=== PATIENT | female | born 1990 | race African-American/Black ===

== ENCOUNTER 2020-08-01 09:49 | Outpatient (CLI) | payer OTHER ==
[2020-08-01 10:45] LABS: APPEARANCE,URINE SLIGHTLY-CLOUDY; BILIRUBIN,URINE NEGATIVE (NEGATIVE); COLOR,URINE YELLOW; GLUCOSE, URINE NEGATIVE (NEGATIVE); KETONES,URINE NEGATIVE (NEGATIVE); LEUKOCYTE ESTERASE,URINE NEGATIVE (NEGATIVE); NITRITE,URINE NEGATIVE (NEGATIVE); PROTEIN,URINE NEGATIVE (NEGATIVE); URINE SPECIFIC GRAVITY 1.008; UROBILINOGEN,URINE NEGATIVE mg/dL (<2.0)
[2020-08-01 10:46] LABS: HEMATOCRIT 33.7 % (36.0-47.0); HEMOGLOBIN 11.2 g/dL (12.0-15.5); MEAN CORPUSCULAR HEMOGLOBIN 29.3 pg (27.0-33.4); MEAN CORPUSCULAR HGB CONC 33.3 g/dL (32.0-36.0); MEAN CORPUSCULAR VOLUME 88 fl (80-97); PLATELET COUNT 360 10^3/uL (150-450); RED BLOOD COUNT 3.83 10^6/uL (3.72-5.28); RED CELL DISTRIBUTION WIDTH 19.5 % (11.5-14.0); WHITE BLOOD COUNT 10.4 10^3/uL (4.0-10.5)
[2020-08-01 11:01] LABS: URINE AMPHETAMINES SCREEN NEGATIVE; URINE BARBITURATES SCREEN NEGATIVE; URINE BENZODIAZEPINES SCREEN NEGATIVE; URINE COCAINE SCREEN NEGATIVE; URINE MARIJUANA (THC) SCREEN NEGATIVE; URINE METHADONE SCREEN NEGATIVE; URINE PHENCYCLIDINE SCREEN NEGATIVE
[2020-08-01 11:07] LABS: ALBUMIN 3.6 g/dL (3.5-5.0); ALKALINE PHOSPHATASE 222 U/L (38-126); ANION GAP 6 (5-19); ASPARTATE AMINO TRANSFERASE 21 U/L (14-36); BILIRUBIN,DIRECT 0.3 mg/dL (0.0-0.4); BILIRUBIN,TOTAL 0.5 mg/dL (0.2-1.3); BLOOD UREA NITROGEN 4 mg/dL (7-20); CALCIUM 9.7 mg/dL (8.4-10.2); CARBON DIOXIDE 24 mmol/L (22-30); CHLORIDE 106 mmol/L (98-107); GLUCOSE 74 mg/dL (75-110); TOTAL PROTEIN 6.5 g/dL (6.3-8.2); URIC ACID 3.8 mg/dL (2.5-6.2)
[2020-08-01 11:10] LABS: UR PRO/CREAT RATIO RESULT 0.7 mg/mg (0.0-0.2); URINE CREATININE 43.2 mg/dL (16-327); URINE PROTEIN 31.5 mg/dL (<12)
--- NOTE | 2020-08-01 11:52 | Non Stress Test Report ---
Non Stress Test Datetime Report Generated by CPN: 08/01/2020 11:52 DEMOGRAPHIC Test Number: 1 EGA NST: 38.6 INDICATION Indication for Study (NST) Other: PIH work up VITAL SIGNS Temperature - NST: 98.1 Pulse - NST: 95 RESP - NST: 15 NBPSYS NST: 120 NBPDIA NST: 75 MONITORING Monitor Explained: Monitor Explained; Test Explained; Patient Verbalized Understanding Time on Monitor: 08/01/2020 09:58 Time off Monitor: 08/01/2020 11:32 NST Duration: 94 NST INTERVENTIONS NST Interventions: PO Hydration Physician Notified NST: K. Stevenson CNM BABY A: [id number] BABY A Movement : Present Contraction Frequency : none FHR Baseline : 135 Accelerations : 15X15 Decelerations : None Variability : Moderate 6-25bpm NST Review: Meets Criteria for Reactive NST NST Review and Verified By : mily RN NST Results: Reactive NST REPORT Report Trigger: Send Report
== END 2020-08-01 12:07 | disposition home or self-care (01) ==
LOC: LC 09:49
PROVIDERS: ATTEND Obstetrics & Gynecology Gynecology
DX: O14.93 Unspecified pre-eclampsia, third trimester (principal); Z3A.38 38 weeks gestation of pregnancy
CPT/HCPCS: 36415; 59025; 80053; 80307; 81005; 82570; 83615; 84112; 84156; 84550; 85027

== ENCOUNTER 2020-08-03 08:55 | Inpatient (IN) | payer OTHER ==
[2020-08-03 09:57] LABS: ABSOLUTE EOSINOPHILS # (AUTO) 0.1 10^3/uL (0.0-0.6); ABSOLUTE LYMPHOCYTES (AUTO) 1.6 10^3/uL (0.5-4.7); ABSOLUTE MONOCYTES (AUTO) 0.8 10^3/uL (0.1-1.4); ABSOLUTE NEUT (AUTO) 6.9 10^3/uL (1.7-8.2); BASOPHILS % (AUTO) 0.4 % (0-2); EOSINOPHILS % (AUTO) 1.5 % (0-6); HEMOGLOBIN 11.3 g/dL (12.0-15.5); LYMPHOCYTES % (AUTO) 16.9 % (13-45); MEAN CORPUSCULAR HEMOGLOBIN 29.7 pg (27.0-33.4); MEAN CORPUSCULAR HGB CONC 34.3 g/dL (32.0-36.0); MEAN CORPUSCULAR VOLUME 87 fl (80-97); MONOCYTES % (AUTO) 8.9 % (3-13); PLATELET COUNT 362 10^3/uL (150-450); RED BLOOD COUNT 3.81 10^6/uL (3.72-5.28); RED CELL DISTRIBUTION WIDTH 18.7 % (11.5-14.0); SEGMENTED NEUTROPHILS % (AUTO) 72.3 % (42-78); TOTAL CELLS COUNTED % (AUTO) 100 %; WHITE BLOOD COUNT 9.5 10^3/uL (4.0-10.5)
[2020-08-03 09:58] LABS: 24 HOUR URINE PROTEIN RESULT 805 mg/day (42-225); URINE PROTEIN 27.2 mg/dL (<12)
[2020-08-03 10:07] LABS: ALBUMIN 3.5 g/dL (3.5-5.0); ALKALINE PHOSPHATASE 229 U/L (38-126); ANION GAP 6 (5-19); ASPARTATE AMINO TRANSFERASE 21 U/L (14-36); BILIRUBIN,DIRECT 0.3 mg/dL (0.0-0.4); BILIRUBIN,TOTAL 0.5 mg/dL (0.2-1.3); BLOOD UREA NITROGEN 4 mg/dL (7-20); CALCIUM 9.7 mg/dL (8.4-10.2); CARBON DIOXIDE 22 mmol/L (22-30); CHLORIDE 107 mmol/L (98-107); GLUCOSE 95 mg/dL (75-110); POTASSIUM 3.8 mmol/L (3.6-5.0); TOTAL PROTEIN 6.4 g/dL (6.3-8.2); URIC ACID 3.6 mg/dL (2.5-6.2)
[2020-08-03] MEDS ORDERED: OXYTOCIN/0.9 % SODIUM CHLORIDE 30 UNIT/500 ML RTUINJ IV PRN (10:38)
[2020-08-03] MEDS ORDERED: RINGERS SOLUTION,LACTATED 1,000 ML IV ONE (10:38)
[2020-08-03] MEDS ORDERED: RINGERS SOLUTION,LACTATED 1,000 ML IV PRN (10:38)
--- NOTE | 2020-08-03 14:31 | Admission Physical ---
Datetime Report Generated by CPN: 08/03/2020 14:30 CURRENT ADMISSION Chief Complaint: Signs/Symptoms Gestational HTN Chief Complaint Other: Patient presented to drop of 24 hour urine protein/creatinine. Resulted at 805. Asymptomatic . Preeclampsia by B/p and 24 hr urine of 805. No severe features. Indication for Induction: PreEclampsia Indication for Induction- Other: Mild pre E at term Admit Impression : Term, Intrauterine ; Intact Membranes Admit Plan: Admit to Unit; Initiate Labor Induction Protocol ALLERGIES Medication Allergies: No Medication Allergies: No Known Allergies (08/03/2020) Latex: No Latex Allergies Food Allergies: n/a Environmental Allergies: n/a OBSTETRICAL HISTORY EDC: 08/09/2020 00:00 : 2 Para: 1 Term: 1 : 0 SAB: 0 IAB: 0 Ectopic: 0 Livin Cesareans: 0 VBACs: 0 Multiple Births: 0 Gestational Diabetes: No Rh Sensitization: No Incompetent Cervix: No MONTEZ: No Infertility: No ART Treatment: No Uterine Anomaly: No IUGR: No Hx Previous C/S: No Macrosomia: No Hx Loss/Stillborn: No PIH: No Hx : No Placenta Previa/Abruption: No Depression/PP Depression: No PTL/PROM: No Post Hemorrhage: No Current Procedures: Ultrasound Obstetrical History Comments: G1- - IOL 10/04/2013 G2- current SEE RECORDS Alcohol: No Marijuana : No Cocaine: No Other Illicit Drugs: No Cigarettes: Former Smoker. [id number] MEDICAL HISTORY Diabetes: No Blood Transfusion: No Pulmonary Disease (Asthma, TB): No Breast Disease: No Hypertension: No Oncology Social Work Surgery: No Heart Disease: No Hosp/Surgery: Yes Autoimmune Disorder: No Anesthetic Complications: No Kidney Disease: No Abnormal Pap Smear: No Neuro/Epilepsy: No Psychiatric Disorders: No Other Medical Diseases: No Hepatitis/Liver Disease: No Significant Family History: No Varicosities/Phlebitis: No Trauma/Violence : No Thyroid Dysfunction: No Medical History Comments: childbirth INFECTIOUS HISTORY Gonorrhea: No Genital Herpes: No Chlamydia: No Tuberculosis: No Syphilis: No Hepatitis: No HIV/AIDS Exposure: No Rash or Viral Illness: No HPV: No PHYSICAL EXAM General: Normal HEENT: Normal Neurologic: Normal Thyroid: Normal Heart: Normal Lungs: Normal Breast: Normal Back: Normal Abdomen: Normal Genitourinary Exam: Normal Extremities: Normal DTRs: Normal Pelvic Type: Adequate Vital Signs: Reviewed; Within Normal Limits VAGINAL EXAM Dilatation: 2 Effacement: 75 Station: -1 Contraction Comments: Irregular FETUS A EGA: 39.1 Monitoring: External US FHR- Baseline: 125 Variability: Moderate 6-25bpm Accelerations: 15X15 Decelerations: None FHR Category: Category I Presentation: Vertex Admit Comment: at 39.1 wks EGA iwth Mild preE at term -Admit to LDR -VS Q 1 hr -CEFM and toco -Labs: 3.6/158/21/12/0.40/362 with 24 hr urine 805 -Will not give mag unless severe features _GBS negative _Plan for Pit /arom _Hx one prior , anticipate PLANS FOR LABOR AND DELIVERY Labor and Delivery: None Pain Management: Natural; Medications; Epidural Feeding Preference: Breast Benefit of Breast Feed Discussed: Yes Circumcision: Yes INFORMED CONSENT Informed Consent Obtained: Vaginal Delivery; Section Delivery; Induction of Labor; Vacuum/Forceps Assist; Risks, Benefits and Alternatives Discussed Signature: with User ID: [email or web address] : with User ID: [email or web address]
[2020-08-03] MEDS ORDERED: OXYTOCIN/0.9 % SODIUM CHLORIDE 0 UNIT/0 ML RTUINJ ONE (14:44)
[2020-08-03] MEDS ORDERED: OXYTOCIN 10 UNIT/ML VIAL ONE (22:28)
[2020-08-03] MEDS ORDERED: OXYTOCIN/0.9 % SODIUM CHLORIDE 30 UNIT/500 ML RTUINJ ONE (22:29)
[2020-08-03] MEDS ORDERED: LIDOCAINE 1% INJ-PF (10 MG/ML) 30 ML SDV ONE (22:29)
[2020-08-03] MEDS ORDERED: MISOPROSTOL 0.2 MG TABLET ONE (22:29)
[2020-08-04] MEDS ORDERED: FENTANYL/BUPIVACAINE/NS/PF 300 MCG/150 ML RTUINJ EPI ONE (00:02)
[2020-08-04] MEDS ORDERED: ROPIVACAINE HCL 0.2% INJ/PF (2 MG/ML) 20 ML SDV ONE (00:02)
[2020-08-04] MEDS ORDERED: EPHEDRINE SULFATE INJ 50 MG/1 ML AMPULE ONE (00:02)
[2020-08-04] MEDS ORDERED: OXYTOCIN/0.9 % SODIUM CHLORIDE 0 UNIT/0 ML RTUINJ ONE (02:58)
[2020-08-04] MEDS ORDERED: DEXTROSE 5%-WATER 250 ML IV PRN (03:54)
[2020-08-04] MEDS ORDERED: DIPHENHYDRAMINE HCL 25 MG CAPSULE PO ONE (05:44)
[2020-08-04] MEDS ORDERED: DIPHENHYDRAMINE HCL 25 MG CAPSULE ONE (05:48)
[2020-08-04] MEDS ORDERED: PROMETHAZINE HCL INJ 25 MG/1 ML VIAL IV PRN ×2 (08:23→10:24)
[2020-08-04] MEDS ORDERED: SIMETHICONE 80 MG TAB.CHEW PO PRN (08:23)
[2020-08-04] MEDS ORDERED: OXYCODONE-ACETAMINOPHEN 5-325 MG TABLET PO PRN ×2 (08:23)
[2020-08-04] MEDS ORDERED: ACETAMINOPHEN 325 MG TABLET PO PRN ×2 (08:23→10:24)
[2020-08-04] MEDS ORDERED: RINGERS SOLUTION,LACTATED 1,000 ML IV PRN (08:23)
[2020-08-04] MEDS ORDERED: DIPH/PERTUSS(ACELL)/TETANUS VAC/PF 0.5 ML SYR (>=10YO) IM PRN ×2 (08:23→10:24)
[2020-08-04] MEDS ORDERED: MEASLES,MUMPS&RUBELLA VACC/PF 0.5 ML VIAL SUBCUT PRN ×2 (08:23→10:24)
[2020-08-04] MEDS ORDERED: HYDROMORPHONE HCL INJ/PF 2 MG/ML AMPULE IV PRN (08:23)
[2020-08-04] MEDS ORDERED: OXYTOCIN/0.9 % SODIUM CHLORIDE 30 UNIT/500 ML RTUINJ IV PRN ×2 (08:23→10:24)
--- NOTE | 2020-08-04 08:24 | L&D Progress Notes ---
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
--- NOTE | 2020-08-04 09:21 | L&D Progress Notes ---
PROGRESS NOTES Datetime Report Generated by CPN: 08/04/2020 09:21 PROGRESS NOTE Informed Consent Obtained: Vaginal Delivery; Section Delivery; Induction of Labor; Vacuum/Forceps Assist; Risks, Benefits and Alternatives Discussed Vital Signs : Reviewed Comment: continues to push, knee chest, good control, Cat 1, early decelerations pt states this baby is bigger than her daughter Anticipate , VAGINAL EXAM Dilatation: 2 Effacement: 75 Station: -1 Contractions: Irregular LAST VAGINAL EXAM-NURSING Nursing Exam Dilitation: 9.0 Nursing Exam Effacement: 80 Nursing Exam Station: 0/+1 Nursing Exam Contractions: RN at bedside palpating and adjusting toco FETUS A Monitoring: External US FHR Category: Category I : 39.1 Presentation: Vertex SIGNATURE SIGNATURE: [id number] Assignment: Chetna Beauchamp MD Signature: with User ID: [email or web address] : with User ID: [email or web address]
[2020-08-04] MEDS ORDERED: PRENATAL VITAMIN W DHA CAPSULE PO SCH (10:00)
[2020-08-04] MEDS ORDERED: KETOROLAC TROMETHAMINE INJ/PF 30 MG/1 ML SDV IV SCH (10:00)
[2020-08-04] MEDS ORDERED: DOCUSATE SODIUM 100 MG CAPSULE PO SCH (10:00)
[2020-08-04] MEDS ORDERED: ZOLPIDEM TARTRATE 5 MG TABLET PO PRN (10:24)
[2020-08-04] MEDS ORDERED: DIPHENHYDRAMINE HCL 25 MG CAPSULE PO PRN (10:24)
[2020-08-04] MEDS ORDERED: PROMETHAZINE HCL 25 MG SUPP.RECT PR PRN (10:24)
[2020-08-04] MEDS ORDERED: PROMETHAZINE HCL 25 MG TABLET PO PRN (10:24)
[2020-08-04] MEDS ORDERED: PSEUDOEPHEDRINE HCL 30 MG TABLET PO PRN (10:24)
[2020-08-04] MEDS ORDERED: ACETAMINOPHEN 650 MG SUPP.RECT PR PRN (10:24)
[2020-08-04] MEDS ORDERED: GLYCERIN/WITCH HAZEL LEAF 1 EACH MED..WIPE TP PRN (10:24)
[2020-08-04] MEDS ORDERED: MAGNESIUM HYDROXIDE SUSP 30 ML UDCUP PO PRN (10:24)
[2020-08-04] MEDS ORDERED: ACETAMINOPHEN WITH CODEINE #3 TABLET PO PRN ×2 (10:24)
[2020-08-04] MEDS ORDERED: NA PHOS,M-B/NA PHOS,DI-BA (ADULT) 133 ML ENEMA PR PRN (10:24)
[2020-08-04] MEDS ORDERED: BENZOCAINE/MENTHOL AEROSOL SPRAY 56 ML TOP PRN (10:24)
[2020-08-04] MEDS ORDERED: DIBUCAINE 1% OINTMENT 28 GM TP PRN (10:24)
[2020-08-04] MEDS ORDERED: METHYLERGONOVINE MALEATE INJ/PF 0.2 MG/1 ML AMPULE ONE (10:33)
[2020-08-04] MEDS ORDERED: ONDANSETRON HCL INJ/PF 4 MG/2 ML SDV ONE (11:13)
[2020-08-04] MEDS ORDERED: IBUPROFEN 800 MG TABLET ONE (11:36)
[2020-08-04] MEDS ORDERED: HYDRALAZINE HCL INJ/PF 20 MG/1 ML SDV ONE (11:50)
--- NOTE | 2020-08-04 14:00 | Delivery Summary ---
Del Sum A-C Datetime Report Generated by CPN: 08/04/2020 13:59 DELIVERY PERSONNEL DELIVERY PERSONNEL: [id number] Delivery Doctor:: Chetna Beauchamp MD Labor and Delivery Nurse:: Julienne Gibbs RNpower barker operator Nurse:: Kira Richards RN Nursery Nurse:: Kira Jacobs RN Additional Personnel: : Kira Richards RN MATERNAL INFORMATION Delivery Anesthesia: Epidural Medications After Delivery: Pitocin 30 Units in 500ml NS/D5W; Methergine 0.2mg IM Delivery QBL: 150 Maternal Complications: None LABOR SUMMARY EDC: 08/09/2020 00:00 No. Babies in Womb: 1 Attempted: No Labor Anesthesia: Epidural LABOR INFORMATION Reason for Induction: Pre-Eclampsia Onset of Labor: 08/04/2020 01:56 Complete Dilatation: 08/04/2020 07:40 Oxytocin: Induction Group B Beta Strep: Negative Antibiotics # of Doses: n/a Steroids Given: None Reason Steroids Not Administered: Not Applicable MEMBRANES Membranes Rupture Method: Spontaneous Rupture of Membranes: 08/04/2020 01:56 Length of Rupture (hr): 8.32 Amniotic Fluid Color: Clear Amniotic Fluid Amount: Small Amniotic Fluid Odor: Normal STAGES OF LABOR Stage 1 hr: 5 Stage 1 min: 44 Stage 2 hr: 2 Stage 2 min: 35 Stage 3 hr: 0 Stage 3 min: 7 Total Time in Labor hr: 8 Total Time in Labor min: 26 VAGINAL DELIVERY Episiotomy: None Laceration #1: Vaginal Laceration Extension #1: First Degree Laceration Repair: Yes Sponge Count Correct: Yes Sharps Count Correct: Yes CSECTION DELIVERY Primary Indication: N/A Secondary Indication: N/A CSection Incidence: N/A Labor: N/A Elective: N/A BABY A INFORMATION Delivery Date/Time: 08/04/2020 10:15 Method of Delivery: Vaginal Nurse Controlled Delivery: No Born in Route : No : N/A Forceps: N/A Vacuum Extraction: N/A Shoulder Dystocia : Yes SHOULDER DYSTOCIA BABY A Delivery of Head: 08/04/2020 10:14 Time Head to Delivery : 1.0 1st Intervention to Resolve: Gentle Attempt at Traction, Assisted by Maternal Expulsive Efforts 2nd Intervention to Resolve: McRobert's Maneuver Verify NO Fundal Pressure: No Fundal Pressure Applied Arm Under Symphisis at Del: Left PRESENTATION/POSITION BABY A Presentation: Cephalic Cephalic Presentation: Vertex Vertex Position: Left Occipital Anterior Breech Presentation: N/A PLACENTA INFORMATION BABY A Placenta Delivery Time : 08/04/2020 10:22 Placenta Method of Delivery: Spontaneous Placenta Status: Delivered (Annotations: Data stored by [facility] on behalf of user) SCORES BABY A Heart Rate 1 min: >100 bpm Resp Effort 1 min: Slow, Irregular Reflex Irritability 1 min: No Response Muscle Tone 1 min: Flaccid Color 1 min: Blue/Pale Resuscitation Effort 1 min: Tactile Stimulation; PPV/NCPAP SCORE 1 MIN: 3 Heart Rate 5 min: >100 bpm Resp Effort 5 min: Good Cry Reflex Irritability 5 min: Cough or Sneeze or Pulls Away Muscle Tone 5 min: Active Motion Color 5 min: Body [place]llo, Extremities Blue Resuscitation Effort 5 min: N/A SCORE 5 MIN: 9 INFORMATION BABY A Gestational Age at Delivery: 39.2 Gestational Status: Full Term- 39- 40.6 Weeks Outcome : Liveborn Condition : Stable Sex: Male IDENTIFICATION BABY A Infant Verification Date/Time: 08/04/2020 11:23 ID Band Number: [id number] Mother's Name Verified: Yes RN Verifying Infant: B Baidy RN Additional Verifying Personnel: C [place] WEIGHT/LENGTH BABY A Infant Birthweight (gm): 4272 Weight (lb): 9 Infant Weight (oz): 7 Infant Length (in): 21.50 Length (cm): 54.61 CORD INFORMATION BABY A No. Cord Vessels: 3 Nuchal Cord : Around Neck x1, Loose True Knot: 1 Cord Blood Taken: Yes-For Eval (Mom's Blood Type - or O+) Infant Suction: None ASSESSMENT BABY A Infant Complications: Shoulder Dystocia Physical Findings at Delivery: Within Normal Limits; Molding of the Head; Bruising Infant Respirations: Appears Normal Skin to Skin: Yes Skin to Skin Time (min): 120 Director Of Sustainability/ALS Called : No Infant Care By: Sarah Jacobs RN Transferred To: Remains with Mother BABY B INFORMATION : N/A
--- NOTE | 2020-08-04 14:00 | Birth Certificate Data ---
Cert Data Datetime Report Generated by CPN: 08/04/2020 13:59 CERTIFICATE DATA 47a. Care: Yes (08/01/2020 09:58:Julienne Gibbs RN) 48a. Number of Prev Live Births: 1 (08/01/2020 09:58:Kira Richards RN) 48b. Now Livin (08/01/2020 09:58:Kira Richards RN) 48c. Live Births Now : 0 (08/01/2020 09:58:QS system process) 48d. Date of Last Live : 10/04/2013 00:00 (08/01/2020 09:58:Kira Richards RN) 48e. Losses: 0 (08/01/2020 09:58:Kira Richards RN) RISK FACTORS IN THIS 49a. Diabetes: No (08/01/2020 09:58:Julienne Gibbs RN) 49b. Hypertension: No (08/01/2020 09:58:Julienne Gibbs RN) Type of Hypertension: Gestational (PIH, Pre-eclampsia) (08/01/2020 09:58:Julienne Gibbs RN) 49c. Previous Births: 0 (08/01/2020 09:58:Kira Richards RN) 49d. Stillborns: No (08/01/2020 09:58:Julienne Gibbs RN) 49d. IUGR: No (08/01/2020 09:58:Julienne Gibbs RN) 49e. Infertility Treatment: No (08/01/2020 09:58:Julienne Gibbs RN) 49f. Previous Cesareans: 0 (08/01/2020 09:58:Kira Richards RN) Mother's Height 50b. Height Inches: 62 (08/03/2020 12:58:QS system process) Mother's Weight 51a. Pre- Weight (lbs): 147 (08/01/2020 09:58:Kira Richards RN) 51b. Weight at Delivery (lbs): 156 (08/01/2020 10:15:QS system process) Infections Present/Treated 53a. Gonorrhea: No (08/01/2020 09:58:Julienne Gibbs RN) Results this Hospital Visit : Negative (08/01/2020 09:58:Kira Richards RN) 53b. Syphilis: No (08/01/2020 09:58:Julienne Gibbs RN) 53c. Chlamydia: No (08/01/2020 09:58:Julienne Gibbs RN) Results this Hospital Visit: Negative (08/01/2020 09:58:Kira Richards RN) 53d. Hepatitis B: No (08/01/2020 09:58:Julienne Gibbs RN) Results this Hospital Visit: Negative (08/01/2020 09:58:Kira Richards RN) 53e. Hepatitis C: Negative (08/01/2020 09:58:Kira Richards RN) 53h. Mother Tested for HBsAG: Yes (08/01/2020 09:58:Kira Richards RN) 53i. Date Tested: 03/20/2020 00:00 (08/01/2020 09:58:Kira CISCO Richards) 53j. Test Result: Negative (08/01/2020 09:58:Kira CISCO Richards) Obstetric Procedures 54a, b, c. Obstetric Procedures: Ultrasound (08/01/2020 09:58:Julienne Gibbs RN) Cigarette Smoking Cigarette Smoking: Former Smoker. [id number] (08/01/2020 09:58:Julienne Gibbs RN) 55a. 3 Months Before Preg - Ci (08/01/2020 09:58:Julienne Gibbs RN) Onset of Labor 56a. PROM >12 Hrs: 8.32 (08/01/2020 09:58:QS system process) 56b. Precipitous Labor <3 Hrs: 8 (08/01/2020 09:58:QS system process) 56c. Prolonged Labor > 20 Hrs: 8 (08/01/2020 09:58:QS system process) 57a. Induction of Labor: Induction (08/01/2020 09:58:Jacinta Estrada RN) 57c. Non-Vertex Presentation A: Vertex (08/01/2020 09:58:Kira Richards RN) 57d. Steroids - Lung Mat: None (08/01/2020 09:58:Jacinta Estrada RN) 57d. Steroids - Lung Mat: Not Applicable (08/01/2020 09:58:Jacinta Estrada RN) 57g. Moderate/Heavy Meconium: Clear (08/04/2020 01:56:Jacinta Estrada RN) 57h. Intolerance of Labor: N/A (08/01/2020 09:58:Kira Richards RN) : N/A (08/01/2020 09:58:Kira Richards RN) 57i. Epidural/Spinal Anesthesia: Epidural (08/01/2020 09:58:Jacinta Estrada RN) Method of Delivery 58a. Forceps - Unsuccessful A: N/A (08/01/2020 09:58:Kira CISCO Richards) 58b. Vacuum - Unsuccessful A: N/A (08/01/2020 09:58:Kira Maurice, CISCO) 58c. Presentation at 58c. Presentation at - A : Vertex (08/01/2020 09:58:Kira CISCO Richadrs) 58c. Presentation at - A : N/A (08/01/2020 09:58:Kirasajan Richards RN) 58c. Presentation at - A : Cephalic (08/01/2020 09:58:Kira CISCO Richards) Final Route and Method of Del 58d. Baby A Route/Delivery: Vaginal (08/04/2020 10:15:Julienne Gibbs RN) 58e. Trial of Labor Attempted: No (08/01/2020 09:58:Jacinta Estrada RN) 58e. Trial of Labor Attempted A: N/A (08/01/2020 09:58:Jacinta Estrada RN) 58e. Trial of Labor Attempted B: N/A (08/01/2020 09:58:Jacinta Estrada RN) Maternal Morbidity 59b. 3rd or 4th Degree Lacs: Vaginal (08/01/2020 09:58:Kira Richards RN) Birthweight Baby A: 4272 (08/01/2020 09:58:Julienne Gibbs RN) 60a. Pounds : 9 (08/01/2020 09:58:QS system process) 60b. Ounces: 7 (08/01/2020 09:58:QS system process) 61. GA at Delivery Baby A: 39.2 (08/01/2020 09:58:Jacinta Estrada RN) : Full Term- 39- 40.6 Weeks (08/01/2020 09:58:QS system process) 62a. 5 Minute Baby A: 9 (08/01/2020 09:58:QS system process)
[2020-08-04] MEDS: IBUPROFEN 800 MG TABLET PO SCH ×2 (14:58→21:09)
--- NOTE | 2020-08-04 16:01 | Admission Physical ---
Datetime Report Generated by CPN: 08/04/2020 16:01 CURRENT ADMISSION Hx Assessment: The History has been Reviewed and is Current Chief Complaint: Uterine Contractions; Suspected Ruptured Membranes Chief Complaint Other: Patient presented to [facility] of 24 hour urine protein/creatinine. Resulted at 805. Asymptomatic . Preeclampsia by B/p and 24 hr urine of 805. No severe features. Indication for Induction: Not Applicable Indication for Induction- Other: Mild pre E at term Admit Impression : Term, Intrauterine ; Active Labor; Ruptured Membranes Admit Plan: Admit to Unit; Initiate Labor Protocol ALLERGIES Medication Allergies: No Medication Allergies: No Known Allergies (08/03/2020) Latex: No Latex Allergies Food Allergies: n/a Environmental Allergies: n/a OBSTETRICAL HISTORY EDC: 08/09/2020 00:00 : 2 Para: 1 Term: 1 : 0 SAB: 0 IAB: 0 Ectopic: 0 Livin Cesareans: 0 VBACs: 0 Multiple Births: 0 Gestational Diabetes: No Rh Sensitization: No Incompetent Cervix: No MONTEZ: No Infertility: No ART Treatment: No Uterine Anomaly: No IUGR: No Hx Previous C/S: No Macrosomia: No Hx Loss/Stillborn: No PIH: No Hx : No Placenta Previa/Abruption: No Depression/PP Depression: No PTL/PROM: No Post Hemorrhage: No Current Procedures: Ultrasound Obstetrical History Comments: G1- - IOL 10/04/2013 G2- current SEE RECORDS Alcohol: No Marijuana : No Cocaine: No Other Illicit Drugs: No Cigarettes: Former Smoker. [id number] MEDICAL HISTORY Diabetes: No Blood Transfusion: No Pulmonary Disease (Asthma, TB): No Breast Disease: No Hypertension: No Pain Medicine Physician Surgery: No Heart Disease: No Hosp/Surgery: Yes Autoimmune Disorder: No Anesthetic Complications: No Kidney Disease: No Abnormal Pap Smear: No Neuro/Epilepsy: No Psychiatric Disorders: No Other Medical Diseases: No Hepatitis/Liver Disease: No Significant Family History: No Varicosities/Phlebitis: No Trauma/Violence : No Thyroid Dysfunction: No Medical History Comments: childbirth INFECTIOUS HISTORY Gonorrhea: No Genital Herpes: No Chlamydia: No Tuberculosis: No Syphilis: No Hepatitis: No HIV/AIDS Exposure: No Rash or Viral Illness: No HPV: No PHYSICAL EXAM General: Normal HEENT: Deferred Neurologic: Normal Thyroid: Normal Heart: Normal Lungs: Normal Breast: Deferred Back: Normal Abdomen: Normal Genitourinary Exam: Normal Extremities: Normal DTRs: Normal Pelvic Type: Adequate Vital Signs: Reviewed VAGINAL EXAM Dilatation: 2 Effacement: 75 Station: -3 Contraction Comments: Irregular MEMBRANES Pooling: Negative Membranes: Intact FETUS A EGA: 39.2 Monitoring: External US FHR- Baseline: 125 Variability: Moderate 6-25bpm Accelerations: 15X15 Decelerations: None FHR Category: Category I Presentation: Vertex Admit Comment: at 39.2 wks EGA with preE, mild -admit to LDR -NPO and IVFs -PIH labs with 24 hr protein 805 -Plan delivery by IOL . PIT/AROM -GBS neg PLANS FOR LABOR AND DELIVERY Labor and Delivery: None Pain Management: Natural; Medications; Epidural Feeding Preference: Breast Benefit of Breast Feed Discussed: Yes Circumcision: Yes INFORMED CONSENT Informed Consent Obtained: Vaginal Delivery; Induction of Labor; Risks, Benefits and Alternatives Discussed Signature: with User ID: [email or web address] : with User ID: [email or web address]
[2020-08-04] MEDS: DOCUSATE SODIUM 100 MG CAPSULE PO SCH (18:22)
[2020-08-04] MEDS: FERROUS SULFATE 325 MG TABLET PO SCH (18:22)
[2020-08-04] MEDS: FAMOTIDINE 20 MG TABLET PO SCH (21:09)
[2020-08-05] MEDS: IBUPROFEN 800 MG TABLET PO SCH ×3 (05:44→21:30)
[2020-08-05 07:03] LABS: HEMATOCRIT 30.6 % (36.0-47.0); HEMOGLOBIN 10.3 g/dL (12.0-15.5); MEAN CORPUSCULAR HEMOGLOBIN 29.3 pg (27.0-33.4); MEAN CORPUSCULAR HGB CONC 33.8 g/dL (32.0-36.0); MEAN CORPUSCULAR VOLUME 87 fl (80-97); PLATELET COUNT 354 10^3/uL (150-450); RED BLOOD COUNT 3.52 10^6/uL (3.72-5.28); RED CELL DISTRIBUTION WIDTH 19.2 % (11.5-14.0); WHITE BLOOD COUNT 14.3 10^3/uL (4.0-10.5)
[2020-08-05] MEDS ORDERED: FAMOTIDINE 20 MG TABLET ONE (09:29)
[2020-08-05] MEDS: SENNOSIDES/DOCUSATE 8.6-50 MG 1 EACH TABLET PO SCH (09:45)
[2020-08-05] MEDS: FAMOTIDINE 20 MG TABLET PO SCH ×2 (09:45→21:31)
[2020-08-05] MEDS: DOCUSATE SODIUM 100 MG CAPSULE PO SCH ×2 (09:45→17:22)
[2020-08-05] MEDS: PRENATAL VITAMIN W DHA CAPSULE PO SCH (09:45)
[2020-08-05] MEDS: FERROUS SULFATE 325 MG TABLET PO SCH ×2 (09:46→17:22)
--- NOTE | 2020-08-05 10:40 | PDOC PROGRESS REPORT ---
Subjective-OB Progress Note for:: 08/05/20 Subjective: Pt doing well, no concerns. She reports light bleeding, reg diet and voiding w/o difficulty. Physical Exam (OB) Vital Signs: Temp Pulse Resp BP Pulse Ox 97.9 F 80 18 114/70 100 08/05/20 07:55 08/05/20 07:29 08/05/20 07:29 08/05/20 07:29 08/05/20 07:29 Intake & Output 08/04/20 08/05/20 08/06/20 06:59 06:59 06:59 Intake Total 600 236 Balance 600 236 Weight 71 kg - Maternal Morbidity 59. Maternal Morbidity (serious complications experinced by the mother associated with labor and delivery: None of the above - Lochia Lochia Amount: Small 10-25 ml Lochia Color: Rubra/Red - Abdomen Description: Soft, Round Hernia Present: No Fundal Description: Firm, Midline Fundal Height: u/u - u/2 Objective-Diagnostic Laboratory: 08/05/20 06:52 08/03/20 09:41 08/05/20 06:52 WBC 14.3 H RBC 3.52 L Hgb 10.3 L Hct 30.6 L MCV 87 MCH 29.3 MCHC 33.8 RDW 19.2 H Plt Count 354 Assessment and Plan(PN) - Assessment and Plan (1) Mild pre-eclampsia delivered Is this a current diagnosis for this admission?: Yes (2) (normal spontaneous vaginal delivery) Is this a current diagnosis for this admission?: Yes (3) Shoulder dystocia during labor and delivery Is this a current diagnosis for this admission?: Yes - Time Spent with Patient Time with patient: Less than 15 minutes Medications reviewed and adjusted accordingly: Yes - Disposition Anticipated Discharge Disposition: Home, Self Care Anticipated Discharge Timeframe: within 24 hours
[2020-08-05] MEDS ORDERED: IBUPROFEN 800 MG TABLET PO SCH (12:00)
[2020-08-06] MEDS: IBUPROFEN 800 MG TABLET PO SCH (05:11)
[2020-08-06] MEDS: DOCUSATE SODIUM 100 MG CAPSULE PO SCH (09:16)
[2020-08-06] MEDS: PRENATAL VITAMIN W DHA CAPSULE PO SCH (09:16)
[2020-08-06] MEDS: SENNOSIDES/DOCUSATE 8.6-50 MG 1 EACH TABLET PO SCH (09:16)
[2020-08-06] MEDS: FERROUS SULFATE 325 MG TABLET PO SCH (09:16)
[2020-08-06] MEDS: FAMOTIDINE 20 MG TABLET PO SCH (09:19)
--- NOTE | 2020-08-06 12:03 | PDOC DISCHARGE SUMMARY ---
Impression - Admit/DC Date/PCP Admission Date/Primary Care Provider: 08/03/20 10:21 MELONIE LIM MD Discharge Date: 08/06/20 - Discharge Diagnosis (1) Obstetrical laceration, first degree Is this a current diagnosis for this admission?: Yes (2) Shoulder dystocia during labor and delivery Is this a current diagnosis for this admission?: Yes (3) Mild pre-eclampsia delivered Is this a current diagnosis for this admission?: Yes - Additional Information Discharge Diet: Regular Discharge Activity: Balance Activity w/Rest, Pelvic Rest Referrals: MELONIE LIM MD [Primary Care Provider] - Prescriptions: Ibuprofen [Motrin 800 mg Tablet] 800 mg PO Q8HP PRN #60 tablet PRN Reason: Home Medications: 148/Iron/Folate 6/Dha [Tendera-Ob Softgel] 1 each PO DAILY 08/01/20 Ibuprofen [Motrin 800 mg Tablet] 800 mg PO Q8HP PRN #60 tablet 08/06/20 Hospital Course 59. Maternal Morbidity (serious complications experinced by the mother associated with labor and delivery: None of the above Results Laboratory Results: WBC 14.3 10^3/uL (4.0-10.5) H 08/05/20 06:52 RBC 3.52 10^6/uL (3.72-5.28) L 08/05/20 06:52 Hgb 10.3 g/dL (12.0-15.5) L 08/05/20 06:52 Hct 30.6 % (36.0-47.0) L 08/05/20 06:52 MCV 87 fl (80-97) 08/05/20 06:52 MCH 29.3 pg (27.0-33.4) 08/05/20 06:52 MCHC 33.8 g/dL (32.0-36.0) 08/05/20 06:52 RDW 19.2 % (11.5-14.0) H 08/05/20 06:52 Plt Count 354 10^3/uL (150-450) 08/05/20 06:52 Lymph % (Auto) 16.9 % (13-45) 08/03/20 09:41 [place] % (Auto) 8.9 % (3-13) 08/03/20 09:41 Eos % (Auto) 1.5 % (0-6) 08/03/20 09:41 Baso % (Auto) 0.4 % (0-2) 08/03/20 09:41 Absolute Neuts (auto) 6.9 10^3/uL (1.7-8.2) 08/03/20 09:41 Absolute Lymphs (auto) 1.6 10^3/uL (0.5-4.7) 08/03/20 09:41 Absolute Monos (auto) 0.8 10^3/uL (0.1-1.4) 08/03/20 09:41 Absolute Eos (auto) 0.1 10^3/uL (0.0-0.6) 08/03/20 09:41 Absolute Basos (auto) 0.0 10^3/uL (0.0-0.2) 08/03/20 09:41 Seg Neutrophils % 72.3 % (42-78) 08/03/20 09:41 Sodium 135.3 mmol/L (137-145) L 08/03/20 09:41 Potassium 3.8 mmol/L (3.6-5.0) 08/03/20 09:41 Chloride 107 mmol/L (98-107) 08/03/20 09:41 Carbon Dioxide 22 mmol/L (22-30) 08/03/20 09:41 Anion Gap 6 (5-19) 08/03/20 09:41 BUN 4 mg/dL (7-20) L 08/03/20 09:41 Creatinine 0.40 mg/dL (0.52-1.25) L 08/03/20 09:41 Est GFR ( Amer) > 60 (>60) 08/03/20 09:41 Est GFR (MDRD) Non-Af > 60 (>60) 08/03/20 09:41 Glucose 95 mg/dL (75-110) 08/03/20 09:41 Uric Acid 3.6 mg/dL (2.5-6.2) 08/03/20 09:41 Calcium 9.7 mg/dL (8.4-10.2) 08/03/20 09:41 Total Bilirubin 0.5 mg/dL (0.2-1.3) 08/03/20 09:41 Direct Bilirubin 0.3 mg/dL (0.0-0.4) 08/03/20 09:41 Neonat Total Bilirubin Not Reportable 08/03/20 09:41 Neonat Direct Bilirubin Not Reportable 08/03/20 09:41 Neonat Indirect Bili Not Reportable 08/03/20 09:41 AST 21 U/L (14-36) 08/03/20 09:41 ALT 11 U/L (<35) 08/03/20 09:41 Alkaline Phosphatase 229 U/L (38-126) H 08/03/20 09:41 Lactate Dehydrogenase 157 U/L (120-246) 08/03/20 09:41 Total Protein 6.4 g/dL (6.3-8.2) 08/03/20 09:41 Albumin 3.5 g/dL (3.5-5.0) 08/03/20 09:41 Ur 24 Hour Volume 2960 mL 08/03/20 07:15 Ur Total Protein 24 Hr 805 mg/day (42-225) H 08/03/20 07:15 Urine Total Protein 27.2 mg/dL (<12) H 08/03/20 07:15 RPR NONREACTIVE (NONREACTIVE) 08/03/20 09:41 Blood Type O POSITIVE 08/03/20 09:41 Antibody Screen NEGATIVE 08/03/20 09:41 Plan Plan of Treatment: follow up one week at [facility] for blood pressure check
[2020-08-06 12:05] VITALS: BP 128/79
== END 2020-08-06 12:46 | disposition home or self-care (01) | DRG 807 ==
LOC: LC 08:55 → LR 10:21 → 2S 08-04 14:00
PROVIDERS: ADMIT Obstetrics & Gynecology; ATTEND Obstetrics & Gynecology
PROC: 10D07Z6 Extraction of Products of Conception, Vacuum, Via Natural or Artificial Opening (ICD-10-PCS; principal; 2020-08-04)
PROC: 0HQ9XZZ Repair Perineum Skin, External Approach (ICD-10-PCS; 2020-08-04)
PROC: 3E033VJ Introduction of Other Hormone into Peripheral Vein, Percutaneous Approach (ICD-10-PCS; 2020-08-04)
DX: O14.04 Mild to moderate pre-eclampsia, complicating childbirth (principal); Z37.0 Single live birth; O66.0 Obstructed labor due to shoulder dystocia; O70.0 First degree perineal laceration during delivery; O69.81X0 Labor and delivery complicated by cord around neck, without compression, not applicable or unspecified; Z03.818 Encounter for observation for suspected exposure to other biological agents ruled out; Z87.891 Personal history of nicotine dependence; Z3A.39 39 weeks gestation of pregnancy
CPT/HCPCS: 36415; 80053; 83615; 84156; 84550; 85025; 85027; 86592; 86850; 86900; 86901; 94760; 99465; J0360; J2210; J2405; J2590; J2795; J3010; J3490